=== PATIENT | male | born 1975 | race Caucasian/White ===

== ENCOUNTER 2018-02-07 21:10 | Emergency (ER) | payer SELFPAY ==
--- NOTE | 2018-02-07 21:21 | PDOC ---
Rapid Medical Evaluation Time Seen by Provider: 02/07/18 21:20 Medical Evaluation: Allergies Allergy/AdvReac Type Severity Reaction Status Date / Time No Known Allergies Allergy Verified 12/07/12 06:32 02/07/18 21:20 I have performed a brief in-person evaluation of this patient. The patient presents with a chief complaint of: sore throat w/ fever x 1 week Pertinent physical exam findings:T 100.3, oropharynx unremarkable I have ordered the following:rapid strep/motrin The patient will proceed to the ED for further evaluation Discharge Disposition - Diagnosis Sore throat - Referrals Referrals: Xander Topete MD [Primary Care Provider] - - Patient Instructions - Post Discharge Activity
[2018-02-07] MEDS ORDERED: IBUPROFEN 400 MG TABLET (FP) PO ONE ×2 (21:22→21:26)
[2018-02-07 21:24] VITALS: BP 143/74; PULSE 92; TEMP 100.3; BMI 28.8
[2018-02-07] MEDS ORDERED: DEXAMETHASONE LIQUID 0.5 MG/5 ML 240 ML BULK BOTTLE PO ONE (22:17)
--- NOTE | 2018-02-07 22:19 | PDOC ---
History of Present Illness - General Chief Complaint: Sore Throat Stated Complaint: Sore Throat Time Seen by Provider: 02/07/18 21:20 - History of Present Illness Initial Comments: 02/07/18 22:18 42-year-old male with a sore throat and fever 5 days Past History - Past Medical History Allergies/Adverse Reactions: Allergies Allergy/AdvReac Type Severity Reaction Status Date / Time No Known Allergies Allergy Verified 12/07/12 06:32 Home Medications: Ambulatory Orders Penicillin V Potassium [Pen Vee K -] 500 mg PO QID #40 tablet 02/07/18 COPD: No - Suicide/Smoking/Psychosocial Hx Smoking Status: No Smoking History: Never smoked Have you smoked in the past 12 months: No Information on smoking cessation initiated: No Hx Alcohol Use: No Drug/Substance Use Hx: No Review of Systems - Review of Systems Constitutional: Yes: Fever HEENTM: Yes: Throat Pain *Physical Exam - Vital Signs Last Vital Signs Temp Pulse Resp BP Pulse Ox 100.3 F H 92 H 17 143/74 99 02/07/18 21:21 02/07/18 21:21 02/07/18 21:21 02/07/18 21:21 02/07/18 21:21 - Physical Exam Comments: 02/07/18 22:18 HEAD: NC/AT EYES: Conjuntiva clear Ears: Canals and TM's normal NOSE: No d/c THROAT: Moist mucous membrances, oral pharanx erythemic, uvula midline NECK: Supple without adenopathy CARDIAC: S1 S2 LUNGS: CTA Full and Equal breath sounds ABDOMEN: Soft NT ND MS: Full ROM in all joints without edema NEUROLOGIC: No gross sensory or motor deficits, NVID SKIN: Normal color and temperature no lesions or rashes Moderate Sedation - Procedure Monitoring Vital Signs: Procedure Monitoring Vital Signs Temperature 100.3 F H 02/07/18 21:21 Pulse Rate 92 H 02/07/18 21:21 Respiratory Rate 17 02/07/18 21:21 Blood Pressure 143/74 02/07/18 21:21 O2 Sat by Pulse Oximetry (%) 99 02/07/18 21:21 ED Treatment Course - Medications Given in the ED: ED Medications Discontinued Medications Generic Name Dose Route Start Last Admin Trade Name Freq PRN Reason Stop Dose Admin Ibuprofen 800 mg 02/07/18 21:22 02/07/18 21:30 Motrin - PO 02/07/18 21:23 800 mg ONCE ONE Administration *DC/Admit/Observation/Transfer Diagnosis at time of Disposition: Sore throat, Strep pharyngitis - Discharge Dispostion Disposition: HOME Condition at time of disposition: Stable Decision to Admit order: No - Prescriptions Prescriptions: Penicillin V Potassium [Pen Vee K -] 500 mg PO QID #40 tablet - Referrals Referrals: Xander Topete MD [Primary Care Provider] - - Patient Instructions Printed Discharge Instructions: Strep Throat, DI for Strep Throat Additional Instructions: Please take the antibiotics as directed and finish the entire bottle as directed. You're given a dose of the steroid in the emergency room. He should not require any more Motrin. If she needs something more for pain you may take Tylenol as directed. Follow-up with your primary care physician in one to 2 days for further evaluation and treatment options warm saltwater gargles 5-6 times a day will help with your pain and return to the emergency room should symptoms worsen or go unresolved. - Post Discharge Activity
[2018-02-07] MEDS ORDERED: DEXAMETHASONE SOD PHOSPHATE 10 MG/1 ML VIAL ONE (22:20)
== END 2018-02-07 22:25 | disposition home or self-care (01) ==
LOC: JER 21:10
DX: J02.0 Streptococcal pharyngitis (principal)
CPT/HCPCS: 87880; 99281-25

== ENCOUNTER 2018-06-21 22:37 | Emergency (ER) | payer OTHER ==
[2018-06-21 23:06] VITALS: BP 131/86; PULSE 82; TEMP 99.2; BMI 26.9
== END 2018-06-21 23:45 | disposition left against medical advice (07) ==
LOC: JER 22:37
DX: Z53.21 Procedure and treatment not carried out due to patient leaving prior to being seen by health care provider (principal)
CPT/HCPCS: 99281-25

== ENCOUNTER 2018-06-22 14:33 | Emergency (ER) | payer OTHER ==
--- NOTE | 2018-06-22 14:36 | PDOC ---
Rapid Medical Evaluation Time Seen by Provider: 06/22/18 14:34 Medical Evaluation: Allergies Allergy/AdvReac Type Severity Reaction Status Date / Time No Known Allergies Allergy Verified 06/21/18 23:06 06/22/18 14:34 I have performed a brief in-person evaluation of this patient. The patient presents with a chief complaint of: rectal pain and bleeding s/p colonoscopy 06/20 Pertinent physical exam findings: deferred I have ordered the following: labs The patient will proceed to the ED for further evaluation. 06/22/18 14:36 Discharge Disposition - Diagnosis Rectal pain - Referrals - Patient Instructions - Post Discharge Activity
[2018-06-22 14:38] VITALS: BMI 26.9
[2018-06-22 15:06] LABS: EOS % 1.1 % (0-4.5); HEMATOCRIT 43.3 % (35.4-49); LYMPH % 26.1 % (8-40); MCH 31.5 pg (25.7-33.7); MCHC 34.6 g/dl (32.0-35.9); MEAN CELL VOLUME 91.1 fl (80-96); MEAN PLT VOLUME 8.9 fl (7.5-11.1); MONO % 7.8 % (3.8-10.2); PLATELET COUNT 217 K/MM3 (134-434); RBC 4.75 M/mm3 (4.00-5.60); RDW 13.5 % (11.9-15.9); WHITE BLOOD COUNT 8.4 K/mm3 (4.0-10.0)
[2018-06-22 15:18] LABS: INR 1.08 (0.83-1.09); PROTHROMBIN TIME (PATIENT) 12.8 SEC (9.7-13.0)
[2018-06-22 15:30] LABS: PLATELET ESTIMATE ADEQUATE
[2018-06-22 15:45] LABS: ALBUMIN 4.3 g/dl (3.4-5.0); ALK PHOS 55 U/L (45-117); ANION GAP 6 MMOL/L (8-16); BILIRUBIN,TOTAL 0.7 mg/dL (0.2-1); BLOOD UREA NITROGEN 10 mg/dL (7-18); CALCIUM 9.4 mg/dL (8.5-10.1); CHLORIDE 102 mmol/L (98-107); CO2 26 mmol/L (21-32); GLUCOSE,RANDOM 163 mg/dL (74-106); POTASSIUM 4.8 mmol/L (3.5-5.1); SGOT/AST 39 U/L (15-37); SGPT/ALT 33 U/L (13-61); SODIUM 134 mmol/L (136-145); TOT PROT 8.4 g/dl (6.4-8.2)
[2018-06-22] MEDS ORDERED: KETOROLAC TROMETHAMINE 30 MG/1 ML VIAL IVPUSH ONE (16:56)
--- NOTE | 2018-06-22 16:57 | PDOC ---
History of Present Illness - General Chief Complaint: Pain Stated Complaint: ABD. PAIN Time Seen by Provider: 06/22/18 14:34 History Source: Patient - History of Present Illness Timing/Duration: reports: getting worse Past History - Past Medical History Allergies/Adverse Reactions: Allergies Allergy/AdvReac Type Severity Reaction Status Date / Time No Known Allergies Allergy Verified 06/22/18 14:38 Home Medications: Ambulatory Orders Penicillin V Potassium [Pen Vee K -] 500 mg PO QID #40 tablet 02/07/18 Hydrocortisone Acetate [Anusol Hc Suppository -] 25 mg RC DAILY #28 supp.rect Polyethylene Glycol 3350 [Miralax (For Daily Use) -] 17 gm PO DAILY #1 bottle COPD: No Other medical history: denies - Suicide/Smoking/Psychosocial Hx Smoking Status: No Smoking History: Never smoked Have you smoked in the past 12 months: No Information on smoking cessation initiated: No Hx Alcohol Use: No Drug/Substance Use Hx: No Review of Systems - Review of Systems Constitutional: No: Chills, Fever, Malaise, Weakness ABD/GI: Yes: Blood Streaked Bowels, Constipated. No: Diarrhea, Nausea, Vomiting , Abdominal cramping *Physical Exam - Vital Signs Last Vital Signs Temp Pulse Resp BP Pulse Ox 99.3 F 105 H 18 126/78 97 06/22/18 14:35 06/22/18 14:35 06/22/18 14:35 06/22/18 14:35 06/22/18 14:35 - Physical Exam Comments: 06/22/18 17:03 42 yo M, h/o HLD, hemorrhoids General Appearance: Yes: Appropriately Dressed, Severe Distress HEENT: positive: Normal Voice Neck: positive: Supple Gastrointestinal/Abdominal: positive: Soft. negative: Tender Rectal Exam: positive: hemorrhoids (multiple external hemorrhoids w/ sig ttp, no e/o thrombosis) Integumentary: positive: Dry, Warm Neurologic: positive: Fully Oriented, Alert, Normal Mood/Affect ED Treatment Course - LABORATORY CBC & Chemistry Diagram: 06/22/18 14:57 06/22/18 14:57 - ADDITIONAL ORDERS Additional order review: Laboratory Results 06/22/18 06/22/18 06/22/18 14:57 14:57 14:57 PT with INR 12.80 INR 1.08 Sodium 134 L Potassium 4.8 Chloride 102 Carbon Dioxide 26 Anion Gap 6 L BUN 10 Creatinine 1.0 Creat Clearance w eGFR 81.94 Random Glucose 163 H Calcium 9.4 Total Bilirubin 0.7 AST 39 H ALT 33 Alkaline Phosphatase 55 Total Protein 8.4 H Albumin 4.3 Blood Type Cancelled Antibody Screen Cancelled 06/22/18 14:57 RBC 4.75 MCV 91.1 MCHC 34.6 RDW 13.5 MPV 8.9 Neutrophils % 64.0 Lymphocytes % 26.1 D Monocytes % 7.8 Eosinophils % 1.1 Basophils % 1.0 Medical Decision Making - Medical Decision Making 06/22/18 16:57 42 yo M, HLD, hemorrhoids, s/p colonoscopy 2 days ago during which hemorrhoid was banded and now here w/ severe rectal pain since surgery. Also reports interment BRB when he swipes and that he strains to have BM. States he is not able to sit now due to pain. No abd pain, n/v/f/c. See exam Rectal pain 2/2 hemorrhoid s/p banding 2 days ago No e/o thrombosis No e/o infxn -pain control -will discuss dispo w/ Dr Andrade of GI 06/22/18 18:[address] Andrade who agrees with discharging with anusol, stool softeners and sitz bath. States patient can see him in the office in 2 days *DC/Admit/Observation/Transfer Diagnosis at time of Disposition: Rectal pain Hemorrhoid Qualifiers: Hemorrhoid type: unspecified Qualified Code(s): K64.9 - Unspecified hemorrhoids - Discharge Dispostion Disposition: HOME Condition at time of disposition: Improved - Prescriptions Prescriptions: Hydrocortisone Acetate [Anusol Hc Suppository -] 25 mg RC DAILY #28 supp.rect Polyethylene Glycol 3350 [Miralax (For Daily Use) -] 17 gm PO DAILY #1 bottle - Referrals Referrals: Xander Topete MD [Primary Care Provider] - - Patient Instructions Printed Discharge Instructions: Hemorrhoids Additional Instructions: Use Anusol and MiraLAX as directed. Also submerge bottom in warm to hot water frequently to help with inflammation. Please follow-up with Dr. Navi Andrade on Wednesday - Post Discharge Activity Forms/Work/School Notes: Back to Work
[2018-06-22] MEDS ORDERED: KETOROLAC TROMETHAMINE 30 MG/1 ML VIAL ONE (17:11)
[2018-06-22 17:47] VITALS: BP 116/69; PULSE 71
[2018-06-22 17:48] VITALS: TEMP 98.1
== END 2018-06-22 18:00 | disposition home or self-care (01) ==
LOC: JER 14:33
PROC: 3E0333Z Introduction of Anti-inflammatory into Peripheral Vein, Percutaneous Approach (ICD-10-PCS; principal; 2018-06-22)
DX: K62.89 Other specified diseases of anus and rectum (principal); E78.5 Hyperlipidemia, unspecified
CPT/HCPCS: 36415; 80053; 85025; 85610; 99282-25

== ENCOUNTER 2020-03-07 10:45 | Day surgery (SDC) | payer OTHER ==
[2020-03-06 12:54] VITALS: BMI 30.2
[2020-03-07] MEDS ORDERED: BUPIVACAINE HCL/PF 0.25% (2.5MG/ML) 10 ML VIAL ONE (12:34)
[2020-03-07] MEDS ORDERED: MIDAZOLAM HCL 2 MG/2 ML SINGLE DOSE VIAL ONE (12:41)
[2020-03-07] MEDS ORDERED: PROPOFOL 20 ML ONE ×2 (12:46)
[2020-03-07] MEDS ORDERED: SUCCINYLCHOLINE CHLORIDE 200 MG/10 ML SYRINGE ONE (12:47)
[2020-03-07] MEDS ORDERED: KETOROLAC TROMETHAMINE 30 MG/1 ML VIAL ONE (12:55)
[2020-03-07] MEDS ORDERED: LIDOCAINE HCL 2% JELLY (5 ML/TUBE) ONE (12:55)
[2020-03-07] MEDS ORDERED: ONDANSETRON 4 MG/2 ML VIAL ONE ×2 (12:55→13:50)
[2020-03-07] MEDS ORDERED: ceFAZolin SODIUM 1 GM VIAL ONE (12:55)
[2020-03-07] MEDS ORDERED: DEXAMETHASONE SOD PHOSPHATE 4 MG/1 ML VIAL ONE (12:55)
[2020-03-07] MEDS ORDERED: LIDOCAINE HCL/PF 2% SDV 5ML VIAL ONE (12:55)
[2020-03-07] MEDS ORDERED: BUPIVACAINE HCL/PF 0.25% (2.5MG/ML) 10 ML VIAL IJ ONE (13:07)
[2020-03-07] MEDS ORDERED: ONDANSETRON 4 MG/2 ML VIAL IVPUSH PRN (13:27)
[2020-03-07] MEDS ORDERED: oxyCODONE HCL 5 MG TABLET PO PRN ×2 (13:27)
[2020-03-07] MEDS ORDERED: PROMETHAZINE HCL 25 MG/1 ML VIAL IVPUSH PRN (13:27)
[2020-03-07 14:55] VITALS: PULSE 64
[2020-03-07 15:12] VITALS: BP 110/70; TEMP 98
== END 2020-03-07 15:20 | disposition home or self-care (01) ==
LOC: FASU 10:45
PROVIDERS: ATTEND Orthopaedic Surgery Sports Medicine
PROC: 0SBC4ZZ Excision of Right Knee Joint, Percutaneous Endoscopic Approach (ICD-10-PCS; principal; 2020-03-07 12:15)
DX: M23.221 Derangement of posterior horn of medial meniscus due to old tear or injury, right knee (principal); M22.41 Chondromalacia patellae, right knee
CPT/HCPCS: 94760